=== PATIENT | female | born 1990 | race Caucasian/White ===

== ENCOUNTER 2017-06-24 11:35 | Day surgery (SDC) | payer OTHER ==
[~2017-06-24] VITALS: Ht 167.6 cm; Wt 86.2 kg
[~2017-06-24 11:35] MED LIST: 0.9% Sodium Chloride 1,000 ML IV SCH; DICY10CA56 PO; FLUT15.88 NS; NORE1TAB26 PO; OMEP40CA36 PO; ONDA-54 PO; PROM5SYR PO; Sodium Chloride LOK Flush 10 mL Syringe IV PRN; fentaNYL-PF 50 mCg/mL 2 mL Inj IVPUSH PRN; relpax
[2017-06-24 12:04] VITALS: BP 124/78; PULSE 71; RESP 14; O2SAT 97
[2017-06-24 12:51] VITALS: BP 100/54; PULSE 69; RESP 12; O2SAT 97
[2017-06-24 13:01] VITALS: BP 103/61; PULSE 74; RESP 12; O2SAT 98
--- NOTE | 2017-06-24 13:20 | ENDO ---
[address] [address] ENDOSCOPY PROCEDURE PATIENT: ENOC CASE : 1990 MR#: [id number] ADMIT: 06/24/2017 JOB ID: [id number] CORRECTED REPORT: DATE: 06/24/2017 TITLE OF OPERATION: Colonoscopy. PREOPERATIVE DIAGNOSIS(ES): Rectal bleeding. POSTOPERATIVE DIAGNOSIS(ES): Normal colonoscopy. ANESTHESIA: Fentanyl 100 mcg, Versed 7 mg IV administered. COMPLICATIONS: None. BLOOD LOSS: Minimal. DESCRIPTION OF PROCEDURE: After the risks and benefits were explained to the patient, informed consent was obtained. After anesthesia was administered, the colonoscope was inserted from the rectum through to the cecum and the mucosa carefully examined. Prep of the patient was excellent. After the procedure was done, the scope withdrawn and the procedure terminated. FINDINGS: Upon inspection of the anus no masses, hemorrhoids, ulcers, or fissures that were seen. Throughout the entire examination no polyps, masses, or lesions. No evidence of overt signs of GI bleeding. Retroflexion was normal. IMPRESSION: Normal colonoscopy. RECOMMENDATIONS: Follow up in GI Clinic as needed. Corrected by ANA 06/29/17 at 12:13pm DOS.
== END 2017-06-24 23:59 | disposition home or self-care (01) ==
LOC: END 11:35
PROVIDERS: ATTEND Internal Medicine Gastroenterology
DX: K62.5 Hemorrhage of anus and rectum (principal); R10.11 Right upper quadrant pain; R11.2 Nausea with vomiting, unspecified; K58.9 Irritable bowel syndrome, unspecified; Z86.69 Personal history of other diseases of the nervous system and sense organs
CPT/HCPCS: 45378; G0500; J2250; J3010; J7030